=== PATIENT | male | born 1980 | race Caucasian/White ===

== ENCOUNTER 2017-01-29 15:36 | Emergency (ER) | payer OTHER ==
[~2017-01-29] VITALS: Ht 180.3 cm; Wt 180.0 kg
[~2017-01-29 15:36] MED LIST: CEFT500T PO; LACT PO; LORTA5 PO
[2017-01-29 15:38] VITALS: BP 191/86; PULSE 114; RESP 20; TEMP 99.1; O2SAT 96
--- NOTE | 2017-01-29 15:43 | PD ---
Physical Exam Time Seen by Provider: 15:42 Narrative 36 y/o male with laceration to R 4th finger. [employer] he was working on tile and a piece of tile cut his finger. vss Seen at triage desk. Awaiting bed placement. Data Data Last Documented VS Vital Signs Date Time Temp Pulse Resp B/P Pulse Ox O2 Delivery O2 Flow Rate FiO2 01/29/17 15:38 99.1 114 20 191/86 96 Room Air [facility] Medical Record Reviewed: Yes Supervised Visit with JASON: Chidi Messer January 29, 2017 15:42
[2017-01-29] MEDS ORDERED: TETANUS/DIPHTHERIA TOXOID ADULT 0.5 ML VIAL IM ONE (16:00)
[2017-01-29] MEDS ORDERED: BUPIVACAINE HCL PF 0.5% 10 ML VIAL INFIL ONE (16:00)
[2017-01-29] MEDS ORDERED: POVIDONE IODINE 10% OINT 30 GM TUBE TOPICAL ONE (16:30)
[2017-01-29] MEDS ORDERED: CEPH-460 PO (16:30)
[2017-01-29] MEDS ORDERED: IBUP800T23 PO (16:30)
--- NOTE | 2017-01-29 16:32 | PD ---
HPI Chief Complaint: Laceration/Skin Injury Time Seen by Provider: 15:50 Travel History International Travel<30 days: No Contact w/Intl Traveler<30days: No Traveled to known affect area: No History of Present Illness HPI Patient is a 36-year-old male presented to the emergency room evaluation of right third finger laceration. Patient was cutting tile at his home when the tile broke and cut the tip of his third finger. Patient states his pain is a 3 out of 10 and describes it as sore and aching. He is uncertain when his last tetanus vaccine was. He denies any other complaints at this time. [facility] Past Medical History Medical History: Denies Significant Hx Cancer: No Cardiovascular Problems: No Diminished Hearing: No Endocrine: No Genitourinary: No Immune Disorder: No Musculoskeletal: No Neurologic: No Psychiatric: No Respiratory: No Immunizations Current: Yes Tetanus Vaccination: Unknown Past Surgical History Surgical History: No Previous Surgery Social History Alcohol Use: No Tobacco Use: No Substance Use: No Allergies-Medications (Allergen,Severity, Reaction): Coded Allergies: No Known Allergies (Unverified , 01/29/17) Reported Meds & Prescriptions Reported Meds & Active Scripts Active Keflex (Cephalexin) 500 Mg Cap 500 Mg PO Q12H 7 Days Ibuprofen 800 Mg Tab 800 Mg PO Q6HR PRN Ceftin (Cefuroxime Axetil) 500 Mg Tab 750 Mg PO BID 10 Days Hydrocodone/Acetaminophen 5 mg/325 mg 1 Tab Tab 1 Tab PO Q6H PRN Lactinex (Lactobacillus Acidophilus) 1 Tab Tab 1 Tab PO TID 14 Days Review of Systems Except as stated in HPI: all other systems reviewed are Neg Skin: Positive Other (laceration, avulsion) Physical Exam Narrative GENERAL: Obese, well-developed, alert male. Resting comfortably in no acute distress. SKIN: Warm and dry. Right third fingertip skin avulsion. HEAD: Normocephalic. EYES: No scleral icterus. No injection or drainage. NECK: Supple, trachea midline. No JVD or lymphadenopathy. CARDIOVASCULAR: Regular rate and rhythm without murmurs, gallops, or rubs. RESPIRATORY: Breath sounds equal bilaterally. No accessory muscle use. GASTROINTESTINAL: Abdomen soft, non-tender, nondistended. MUSCULOSKELETAL: No cyanosis, or edema. Full range of motion in all fingers on right hand, motor is intact. Sensation is intact with the exception of the right third fingertip. Patient is neurovascularly intact. BACK: Nontender without obvious deformity. No CVA tenderness. Data Data Last Documented VS Vital Signs Date Time Temp Pulse Resp B/P Pulse Ox O2 Delivery O2 Flow Rate FiO2 01/29/17 16:57 102 20 133/69 98 Room Air 01/29/17 15:38 99.1 Orders Tetanus/Diphtheria Tox Adult (Tetanus/Di (01/29/17 16:00) Bupivacaine Pf 0.5% Inj (Marcaine Pf 0.5 (01/29/17 16:00) Povidone Iodine 10% Oint (Betadine 10% O (01/29/17 16:30) MDM Medical Decision Making Medical Screen Exam Complete: Yes Emergency Medical Condition: Yes Interpretation(s) Vital Signs Date Time Temp Pulse Resp B/P Pulse Ox O2 Delivery O2 Flow Rate FiO2 01/29/17 15:38 99.1 114 20 191/86 96 Room Air Differential Diagnosis Laceration versus fingertip avulsion versus open fracture versus abrasion versus other Narrative Course Patient is a 36-year-old male presenting to emergency for evaluation of a laceration to his right third fingertip, physical exam is consistent with a fingertip avulsion, there was approximately 1 mm of skin attached, there was no bony involvement or involvement of the fingernail bed. Patient is neurovascularly intact. Please see procedure report for repair. Patient was advised that finger tip will be numb for some time and he will likely lose the skin that was repaired. He was given verbal instructions on wound care as well as signs and symptoms of infection. He was encouraged to follow-up at the [place]. He was encouraged to return to emergency department immediately for any new or worsening symptoms. Patient verbalized understanding of instructions. Patient is stable for discharge. Vitals were rechecked prior to discharge, heart rate and blood pressure normalized. Procedures Procedure Narrative LACERATION LOCATION: Right third finger on the palmar aspect distal to the DIP joint LENGTH: Avulsion NUMBER OF STITCHES/АЛЕКСАНДР: 7 stitches REPAIR: The area of the laceration was prepped with Betadine and sterilely draped. A digital block to the right third finger with 0.5% bupivacaine was performed. After patient was adequately anesthetized the wound was copiously irrigated and explored without evidence of foreign body, tendon injury or neurovascular injury. The wound was closed using 4-0 proline. This was a 1 layer repair. A sterile dressing and topical povidone iodine ointment was applied. The patient was advised to keep the dressing clean and dry. Patient tolerated the procedure well. Diagnosis Primary Impression: Avulsion of fingertip Qualified Code: S61.209A - Avulsion of fingertip, initial encounter Additional Impression: Tetanus-diphtheria vaccination administered at current visit Referrals: Primary Care Physician 2 days Patient Instructions: General Instructions, Skin Avulsion (ED) Additional Instructions: Follow-up primary doctor Stitches will need to come out in 10-14 days Return to emergency department immediately for any new or worsening symptoms Complete full course of antibiotics as prescribed Keep wound clean and dry, apply topical povidone iodine ointment twice daily Med/Other Pt SpecificInfo: Prescription(s) given Scripts Cephalexin (Keflex)500 Mg [id number] Mg PO Q12H 7 Days Ref 0 Prov:Jessica Shaikh 01/29/17 Ibuprofen 800 Mg [id number] Mg PO Q6HR PRN (PAIN) #40 TAB Ref 0 Prov:Jessica Shaikh 01/29/17 Disposition: 01 DISCHARGE HOME Condition: Stable Jessica Shaikh January 29, 2017 16:32
[2017-01-29 16:57] VITALS: BP 133/69; PULSE 102; RESP 20; O2SAT 98
== END 2017-01-29 17:03 | disposition home or self-care (01) ==
LOC: NEPD 15:36
DX: S61.212A Laceration without foreign body of right middle finger without damage to nail, initial encounter (principal); Z23 Encounter for immunization; W26.8XXA Contact with other sharp object(s), not elsewhere classified, initial encounter; Y93.89 Activity, other specified; Y92.009 Unspecified place in unspecified non-institutional (private) residence as the place of occurrence of the external cause; Y99.9 Unspecified external cause status
CPT/HCPCS: 12001; 90471; 90714